=== PATIENT | female | born 2000 | race Caucasian/White ===

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

== ENCOUNTER → 2022-11-18 18:34 | Outpatient (BNVA) | payer OTHER, MEDICAID, SELFPAY | PROVIDERS: PCP Family Medicine; Visit Provider Nurse Practitioner Family | DX: R50.9 Fever, unspecified (principal); Z20.822 Contact with and (suspected) exposure to COVID-19 | CPT/HCPCS: 87400; 87426 ==

== ENCOUNTER → 2023-07-30 16:35 | Outpatient (BNVA) | payer MEDICAID, SELFPAY | PROVIDERS: PCP Family Medicine; Visit Provider Nurse Practitioner Family | DX: R39.9 Unspecified symptoms and signs involving the genitourinary system (principal); N39.0 Urinary tract infection, site not specified | CPT/HCPCS: 81000; 81025; 87077; 87086; 87184 ==

== ENCOUNTER 2024-09-15 08:00 | Outpatient (CLI) | payer MEDICAID, SELFPAY ==
[2024-09-15] VITALS (14 sets, daily range): BP systolic 123–153; BP diastolic 67–97; PULSE 74–107; O2SAT 98; BMI 29.2
[2024-09-15 09:10] LABS: Nitrazine Paper, PH Negative
[2024-09-15] MEDS: hyDROXYzine 25 mg Capsule PO (10:38)
== END 2024-09-15 11:50 | disposition home or self-care (01) ==
LOC: OPOB 08:07 → OBGYN 08:08
PROVIDERS: PCP Family Medicine; Visit Provider Family Medicine
DX: O26.899 Other specified pregnancy related conditions, unspecified trimester (principal); Z3A.00 Weeks of gestation of pregnancy not specified; R10.9 Unspecified abdominal pain
CPT/HCPCS: 83986

== ENCOUNTER 2024-09-25 01:16 | Inpatient (IN) | payer MEDICAID, SELFPAY ==
[2024-09-24] VITALS (49 sets, daily range): BP systolic 115–176; BP diastolic 57–104; PULSE 71–109; RESP 17; TEMP 36.6–36.7; O2SAT 96–98; BMI 28.8
[2024-09-24 13:40] LABS: UPRO/UCREAT Ratio 0.33 mg/mg CR; Urine Creatinine 33 mg/dL (28-217); Urine Protein Random 11 mg/dL
[2024-09-24 13:53] LABS: Bilirubin Urine Negative (Negative); Blood Urine Negative (Negative); Glucose Urine UA Negative (Normal); Ketones Urine Negative (Negative); Leukocyte Esterase Urine Trace (Negative); Nitrate Urine Negative (Negative); Protein Urine Negative (Negative); Specific Gravity, Urine 1.006 (1.005-1.030); Urine Appearance Cloudy (CLEAR); Urine Color Yellow (Yellow); Urobilinogen Urine 0.2 mg/dL (Negative)
[2024-09-24 13:55] LABS: Add Urine Microscopic? YES; Bacteria Urine 1+ /hpf; Hyaline Casts Urine 2.46 /lpf; RBC Urine 0-2 /hpf (0-2); Squamous Epithelial Cell Urine 21-50 /hpf (0-5)
[2024-09-24 14:03] LABS: Basophils # 0.1 10^3/uL (0.0-0.1); Basophils % 0.7 %; Eosinophils % 0.4 %; Hematocrit 38.7 % (36-47); Lymphocytes # 2.4 10^3/uL (0.8-4.8); Lymphocytes % 31.7 %; Mean Corpuscular HGB Conc 32.6 g/dL (30-55); Mean Corpuscular Hemoglobin 27.9 pg (27-33); Mean Corpuscular Volume 85.6 fl (85-98); Mean Platelet Volume 11.8 fL (7.4-10.4); Monocytes # 0.6 10^3/uL (0.2-0.9); Monocytes % 8.1 %; Neutrophils % 58.6 %; Nucleated Red Blood Cells % 0 %; Platelet Count 184 10^3/cmm (157-399); Red Blood Count 4.52 10^6/uL (3.85-5.65); Red Cell Distribution Width 13.7 % (12.1-15.1); White Blood Count 7.67 10^3/uL (3.29-11.43)
[2024-09-24] MEDS: hyDROXYzine 25 mg Capsule PO (14:13)
[2024-09-24 14:18] LABS: Uric Acid 4.7 mg/dL (2.4-5.7)
[2024-09-24 14:45] LABS: Alanine Aminotransferase 11 U/L (0-33); Albumin Level 3.7 g/dL (3.5-5.2); Alkaline Phosphatase 207 U/L (35-105); Anion Gap 19.2 (5-19); Aspartate Amino Transferase 20 U/L (0-32); Blood Urea Nitrogen 6 mg/dL (6-20); Calcium 9.9 mg/dL (8.5-10.5); Carbon Dioxide 19 mmol/L (22-29); Chloride 100 mmol/L (98-107); Globulin 3.1 g/dL (1.3-4.6); Glucose 73 mg/dL (65-115); Osmolality Calculated 274 mOsm/kg (285-295); Potassium 4.2 mmol/L (3.5-5.1); Sodium 134 mmol/L (136-145); Total Bilirubin 0.3 mg/dL (0.15-1.2); Total Protein 6.8 g/dL (6.6-8.7)
[2024-09-24] MEDS: lactated ringers 1,000 ML 999 ML IV (17:00)
[2024-09-24] MEDS: miSOPROStol 100 mcg tablet 25 MCG VAGINAL ×2 (17:11→22:03)
--- NOTE | 2024-09-24 17:43 | PM.OPHPUD ---
Labor & Delivery H&P Update Date of Procedure: September 24, 2024 Date H&P Performed: 09/24/24 Changes to previous documentation: The patient has had multiple blood pressures that were severe. She also had a protein creatinine ratio greater than 0.3. Admission Diagnosis: 24-year-old 1 at 40 weeks estimated gestational age with preeclampsia. Planned procedure: Vaginal delivery Other information: The patient's lab work was relatively unremarkable. Her blood type is O+. Her antibody screen is negative. She was GBS negative. She passed her glucose screen. She is rubella immune. The remainder of her infectious disease profile is within normal limits. Related Problem List Diagnoses (1) 40 weeks gestation of : (2) Preeclampsia: A&P Assessment and plan (1) 40 weeks gestation of : Status: Acute (2) Preeclampsia: While she did have some elevated blood pressures, she was also very anxious at that time. With a dose of hydroxyzine, her blood pressures were no longer in the severe range. She has no other symptoms of severe preeclampsia. She has minimal swelling. She has no headaches. She has no visual changes. Her only other indication of preeclampsia is a protein creatinine ratio of 0.3. As such, magnesium is not indicated at this time. We will initiate induction with Cytotec and adjust according to how she responds. Status: Acute
[2024-09-24] MEDS: sodium chloride 0.9% 1,000 ML 125 ML IV (19:16)
--- NOTE | 2024-09-24 20:11 | P.ANES_ITS ---
Anesthesia Procedures Procedure/Date: 09/24/24 Epidural: Time Out Performed: Yes Consents Signed: Procedure Consent Consent: requested by attending/covering physician and from patient Lumbar Level: L3-L4 Epidural position: sitting Epidural procedure: sterile prep of area, 1% lidocaine to numb the area, 18 g needle, negative for paresthesia p assed, neg for paresthesia, test dose given, 1.5% xylocaine 1:200k epi, 0.2% Ropivacaine bolus ml, placed PCEA, no systemic response, sterile dressing applied, L.U.D. no apparent complications and 0.2% Ropiavacaine @ mls/hr Additional Comments: catheter left at 14cm. ropivicaine set at 10mls/hr
[2024-09-24] MEDS: ROPivacaine syringe 100 MG/50 ML SYRINGE 10 MG EPIDURAL (20:22)
--- NOTE | 2024-09-24 20:43 | ANES.PREANE2 ---
Pre-Anesthetic Assessment Height/Weight: Height 5 ft 6 in Weight 179 lb Pulse Resp BP Pulse Ox O2 Del Method 84 17 131/66 98 Room Air 09/24/24 20:38 09/24/24 15:41 09/24/24 20:38 09/24/24 20:21 09/24/24 16:09 Preop Diagnosis: Active labor Was Beta Melissa taken within 24 hours: N/A Was Clonidine taken within 24 hours: N/A Social No alcohol and No tobacco Exam alert, oriented x 3, clear to auscultation bilaterally and regular rate & rhythm Airway Submandibular: within normal limits Cervical ROM: within normal limits Mallampati: Class II Dentition: full Anesthetic Plan ASA status: 2 Anesthesia: Regional (specify below) Other: First-time mom, no prior issues with anesthesia Preeclampsia. BP 131/66 Patient denies any issues with baby Denies low back problems Labs reviewed and acceptable for procedure Plan for routine epidural placement Medications/Allergies Home Medications Medication Instructions Recorded Confirmed Last Taken Type ferrous sulfate 325 mg (65 mg 325 mg PO DAILY 09/15/24 09/24/24 09/24/24 History iron) tablet (iron) mlialwdc-bjy-Ov-FA 1 mg 1 tab PO DAILY 09/15/24 09/24/24 09/24/24 History tablet Allergies Allergy/AdvReac Type Severity Reaction Status Date / Time nickel Allergy ADR-Itching Verified 09/15/24 08:55 Current Medications Generic Name Dose Route Start Last Admin Trade Name Freq PRN Reason Stop Dose Admin Sodium Chloride 1,000 mls @ 999 mls/hr 09/24/24 15:41 09/24/24 19:16 Sodium Chloride 0.9% IV 125 mls/hr .Q1H1M PRN Administration Per L&D Rescitation Protocol Ropivacaine 100 mg in 50 mls @ 10 mls/hr 09/24/24 16:00 09/24/24 20:22 Naropin Syringe EPIDURAL 10 mls/hr .Q5H CRISTOFER Administration Misoprostol 25 mcg 09/24/24 15:43 09/24/24 17:11 Misoprostol 100 Mcg Tablet VAGINAL 25 mcg Q4H PRN Administration LABOR INDUCTION PFSH Anesthesia Family History Grandmother Diabetes CAD (coronary artery disease) Denies family history of Anesthesia complication Bleeding disorder Cancer Social History Smoking and tobacco/nicotine status: current every day tobacco/nicotine user Alcohol intake: never Substance/Drug Use: never Female Reproductive History : 1 Data Anesthesia 09/24/24 13:52 09/24/24 13:15 Short CBC 09/24/24 Range/Units 13:52 WBC 7.67 (3.29-11.43) 10^3/uL Hgb 12.60 (11.27-16.99) g/dL Hct 38.7 (36-47) % MCV 85.6 (85-98) fl Plt Count 184 (157-399) 10^3/cmm Neut % (Auto) 58.6 % Neut # (Auto) 4.50 (1.8-7.7) 10^3/uL BMP 09/24/24 13:15 Sodium 134 L Potassium 4.2 Chloride 100 Carbon Dioxide 19 L BUN 6 Creatinine 0.6 Glucose 73 Calcium 9.9 Liver Function 09/24/24 Range/Units 13:15 Total Bilirubin 0.3 (0.15-1.2) mg/dL AST 20 (0-32) U/L ALT 11 (0-33) U/L Alkaline Phosphatase 207 H (35-105) U/L Albumin 3.7 (3.5-5.2) g/dL Urine 09/24/24 Range/Units 13:15 Urine Color Yellow (Yellow) Urine Appearance Cloudy A (CLEAR) Urine pH 7.0 (5-7) Ur Specific [place] 1.006 (1.005-1.030) Urine Protein Negative (Negative) Urine Glucose (UA) Negative (Normal) Urine Ketones Negative (Negative) Urine Nitrate Negative (Negative) Urine Bilirubin Negative (Negative) Ur Leukocyte Esterase Trace A (Negative) Urine RBC 0-2 (0-2) /hpf Urine WBC 11-20 H (0-5) /hpf Blood Bank 09/24/24 13:52 Blood Type O Positive Rho(D) Type Rh positive Antibody Screen Negative Cardiac Studies: No Data to Display
[2024-09-24] MEDS: hyDROXYzine 25 mg Capsule 50 MG PO (21:35)
[2024-09-25] VITALS (69 sets, daily range): BP systolic 122–179; BP diastolic 58–104; PULSE 66–139; RESP 14–20; TEMP 36.4–37.8; O2SAT 97
[2024-09-25] MEDS: ROPivacaine syringe 100 MG/50 ML SYRINGE 10 MG EPIDURAL ×4 (00:01→08:37)
[2024-09-25] MEDS: dextrose 5%-lactated ringers 1,000 ML 125 ML IV ×2 (01:43→09:24)
--- NOTE | 2024-09-25 11:55 | P.PCNOB_ITS ---
Delivery Note: Date of delivery: September 25, 2024 Pre-delivery diagnoses: 24-year-old 1 at 40 weeks estima sneha gestational age with preeclampsia without severe features Post-delivery diagnoses: Status post spontaneous vaginal delivery Procedure: Spontaneous vaginal delivery Delivering Physician: Georges Ghosh Estimated blood loss (mL): 75 Pre-Delivery Course: The patient presented to the hospital for induction due to elevated blood pressures. She is also noted to have a protein creatinine ratio of 0.3. Otherwise she had no symptoms for preeclampsia and while she did have some severe blood pressures initially they resolved quickly with a dose of hydralazine. She was placed on Cytotec 25 mcg per vagina x 3. An epidural was placed. Spontaneous rupture membranes occurred about 8 hours prior to delivery. Delivery: DELIVERY: The patient progressed to complete without difficulty. She delivered a male with a weight of 8 pounds 7 ounces with Apgars of 7, 9. The baby was delivered from the [] position. The baby's mouth and nose were suctioned at the site of the perineum. The baby was then completely delivered and placed on the mother's abdomen. The cord was then clamped and cut. There was no nuchal cord. There was no meconium. The placenta and 3 vessel cord were delivered intact shortly thereafter. The perineum and vaginal vault were carefully examined. No lacerations were noted. Both the mother and the baby were in stable condition. Post-Delivery Status: Good History History History 1 Term Miscarriages/Ectopic Living Children A&P Assessment and plan (1) 40 weeks gestation of : I anticipate routine care. The patient has had no symptoms of preeclampsia and her blood pressures have resolved. If she starts having symptoms with preeclampsia her blood pressure substantially increases we may consider more interventions. (2) Preeclampsia: (3) Spontaneous vaginal delivery: Coding Level of Care Code Acute Code for Chg Fwd Diagnoses 40 weeks gestation of Z3A.40 Preeclampsia O14.90 Spontaneous vaginal delivery O80
[2024-09-25] MEDS: hyDRALAzine 20 mg/mL INJ 1 mL 5 MG IVP (13:37)
[2024-09-25] MEDS: hyDRALAzine 20 mg/mL INJ 1 mL 10 MG IVP (14:06)
[2024-09-25] MEDS: acetaminophen 325 mg Tablet 650 MG PO (14:09)
[2024-09-25] MEDS: hyDRALAzine 20 mg/mL INJ 1 mL IVP (14:27)
[2024-09-25] MEDS: ibuprofen 800 mg tablet PO ×2 (15:59→21:33)
--- NOTE | 2024-09-25 18:50 | PC.NURSE ---
Multiple family members in room at this time. Family remained in room until 1615.
[2024-09-25] MEDS: docusate sodium 100 mg Capsule PO (21:33)
[2024-09-26 00:41] VITALS: BP 134/68
[2024-09-26 03:43] LABS: Hematocrit 36.6 % (36-47); Mean Corpuscular HGB Conc 32.8 g/dL (30-55); Mean Corpuscular Volume 85.3 fl (85-98); Mean Platelet Volume 12.3 fL (7.4-10.4); Platelet Count 176 10^3/cmm (157-399); Red Blood Count 4.29 10^6/uL (3.85-5.65); Red Cell Distribution Width 14.4 % (12.1-15.1); White Blood Count 12.54 10^3/uL (3.29-11.43)
[2024-09-26 04:17] VITALS: BP 150/94; PULSE 76; RESP 16; TEMP 37; O2SAT 99
[2024-09-26 05:22] VITALS: BP 110/57
[2024-09-26 06:00] VITALS: BMI 28.8
--- NOTE | 2024-09-26 07:36 | PM.OBGYDC ---
Discharge Providers EDUCATIONAL DIAGNOSTICIAN Date of Admission: 09/25/24 01:16 Date of Discharge: 09/26/24 Attending Provider at Admission: Georges Ghosh MD Attending Provider at Discharge: Georges Ghosh MD Primary Care Provider: Francois Ahuja MD Diagnoses at Discharge Discharge Diagnosis (1) 40 weeks gestation of : Status: Acute (2) Preeclampsia: Status: Acute Reason for Visit Reason for Visit: Elevated BP Hospital Course Hospital Course The patient presented to the hospital after being seen in my office and found found to have elevated blood pressures multiple times. After arriving to the hospital, she had a preeclamptic workup which found her protein creatinine ratio be 0.3. She also had intermittent elevated blood pressures. Her blood pressures appear to be very related to her anxiety level. She was induced using Cytotec. Her labor was relatively unremarkable. She progressed to complete and had an unremarkable delivery of a healthy appearing . Her course was also unremarkable. She once again had some elevated blood pressures, but were intermittent, and related to surrounding circumstances. Otherwise she had no symptoms of preeclampsia. Her bleeding was within normal limits. Her pain was well-controlled. She was breast-feeding, but complained of a shallow latch. A frenectomy was performed on her . Information Peripartum Data: Infant Delivery Method: Vaginal Physical Exam Narrative: The patient is alert. She appears comfortable. Her heart has a regular rate and rhythm with no murmurs appreciated. Lungs are clear to auscultation bilaterally. Her fundus is firm and below the umbilicus. Urinary Catheter Management: Stanley: Cath Placed During This Visit: yes, but has since been removed by the nurse Reason for Continuing Indwelling Catheter: Decision to DC Catheter Urinary Catheter Date of Insertion: 09/24/24 Urinary Catheter Time of Insertion: 20:50 Date Urinary Catheter Removed: 09/25/24 Time Urinary Catheter Discontinued: 10:00 History History History 1 Term Miscarriages/Ectopic Living Children Discharge Data Studies Completed and Pending Laboratory Results WBC 12.54 10^3/uL (3.29-11.43) H 09/26/24 02:47 RBC 4.29 10^6/uL (3.85-5.65) 09/26/24 02:47 Hgb 12.00 g/dL (11.27-16.99) 09/26/24 02:47 Hct 36.6 % (36-47) 09/26/24 02:47 MCV 85.3 fl (85-98) 09/26/24 02:47 MCH 28.0 pg (27-33) 09/26/24 02:47 MCHC 32.8 g/dL (30-55) 09/26/24 02:47 RDW 14.4 % (12.1-15.1) 09/26/24 02:47 Plt Count 176 10^3/cmm (157-399) 09/26/24 02:47 MPV 12.3 fL (7.4-10.4) H 09/26/24 02:47 Neut % (Auto) 58.6 % 09/24/24 13:52 Lymph % (Auto) 31.7 % 09/24/24 13:52 Meigs % (Auto) 8.1 % 09/24/24 13:52 Eos % (Auto) 0.4 % 09/24/24 13:52 Baso % (Auto) 0.7 % 09/24/24 13:52 Neut # (Auto) 4.50 10^3/uL (1.8-7.7) 09/24/24 13:52 Lymph # (Auto) 2.4 10^3/uL (0.8-4.8) 09/24/24 13:52 Meigs # (Auto) 0.6 10^3/uL (0.2-0.9) 09/24/24 13:52 Eos # (Auto) 0.0 10^3/uL (0.0-0.8) 09/24/24 13:52 Baso # (Auto) 0.1 10^3/uL (0.0-0.1) 09/24/24 13:52 Nucleated RBC % (auto) 0 % 09/24/24 13:52 Nucleated RBCs # 0.0 /100WBC 09/24/24 13:52 Sodium 134 mmol/L (136-145) L 09/24/24 13:15 Potassium 4.2 mmol/L (3.5-5.1) 09/24/24 13:15 Chloride 100 mmol/L (98-107) 09/24/24 13:15 Carbon Dioxide 19 mmol/L (22-29) L 09/24/24 13:15 Anion Gap 19.2 (5-19) H 09/24/24 13:15 BUN 6 mg/dL (6-20) 09/24/24 13:15 Creatinine 0.6 mg/dL (0.5-0.9) 09/24/24 13:15 GFR Calculation 125.0 mL/min (90-130) 09/24/24 13:15 Glucose 73 mg/dL (65-115) 09/24/24 13:15 Calculated Osmolality 274 mOsm/kg (285-295) L 09/24/24 13:15 Uric Acid 4.7 mg/dL (2.4-5.7) 09/24/24 13:52 Calcium 9.9 mg/dL (8.5-10.5) 09/24/24 13:15 Total Bilirubin 0.3 mg/dL (0.15-1.2) 09/24/24 13:15 AST 20 U/L (0-32) 09/24/24 13:15 ALT 11 U/L (0-33) 09/24/24 13:15 Alkaline Phosphatase 207 U/L (35-105) H 09/24/24 13:15 Total Protein 6.8 g/dL (6.6-8.7) 09/24/24 13:15 Albumin 3.7 g/dL (3.5-5.2) 09/24/24 13:15 Globulin 3.1 g/dL (1.3-4.6) 09/24/24 13:15 Urine Color Yellow (Yellow) 09/24/24 13:15 Urine Appearance Cloudy (CLEAR) A 09/24/24 13:15 Urine pH 7.0 (5-7) 09/24/24 13:15 Ur Specific [place] 1.006 (1.005-1.030) 09/24/24 13:15 Urine Protein Negative (Negative) 09/24/24 13:15 Urine Glucose (UA) Negative (Normal) 09/24/24 13:15 Urine Ketones Negative (Negative) 09/24/24 13:15 Urine Blood Negative (Negative) 09/24/24 13:15 Urine Nitrate Negative (Negative) 09/24/24 13:15 Urine Bilirubin Negative (Negative) 09/24/24 13:15 Urine Urobilinogen 0.2 mg/dL (Negative) 09/24/24 13:15 Ur Leukocyte Esterase Trace (Negative) A 09/24/24 13:15 Urine RBC 0-2 /hpf (0-2) 09/24/24 13:15 Urine WBC 11-20 /hpf (0-5) H 09/24/24 13:15 Ur Squamous Epith Cells 21-50 /hpf (0-5) H 09/24/24 13:15 Amorphous Sediment Not Reportable 09/24/24 13:15 Urine Bacteria 1+ /hpf (NONE) H 09/24/24 13:15 Hyaline Casts 2.46 /lpf 09/24/24 13:15 U Random Total Protein 11 mg/dL 09/24/24 13:15 Urine Creatinine 33 mg/dL (28-217) 09/24/24 13:15 Protein/Creatinin Ratio 0.33 mg/mg CR 09/24/24 13:15 Blood Type O Positive 09/24/24 13:52 Rho(D) Type Rh positive 09/24/24 13:52 Antibody Screen Negative 09/24/24 13:52 Vitals Last Vital Signs Temp 98.6 F 09/26/24 04:17 Pulse 76 09/26/24 04:17 Resp 16 09/26/24 04:17 BP 110/57 09/26/24 05:22 Pulse Ox 99 09/26/24 04:17 O2 Del Method Room Air 09/26/24 04:17 Results Labs OB ([facility]): Blood Type O Positive 09/24/24 Antibody Screen Negative 09/24/24 Hct 36.6 % (36-47) 09/26/24 Hgb 12.00 g/dL (11.27-16.99) 09/26/24 Rho(D) Type Rh positive 09/24/24 Plt Count 176 10^3/cmm (157-399) 09/26/24 Uric Acid 4.7 mg/dL (2.4-5.7) 09/24/24 HCG, Qual Negative (Negative) 07/30/23 Micro Urine Specimen 07/30/23 Discharge Plan Discharge Patient Disposition: Home Condition: Stable Prescriptions: New ibuprofen 800 mg Tablet 800 mg PO TID Qty: 45 0RF Continued [id number] 1 mg Tablet 1 tab PO DAILY Discontinued ferrous sulfate [iron] 325 mg (65 mg iron) Tablet 325 mg PO DAILY Discharge Orders: Discharge Order (Routine); Ordered 09/26/24 Ordered By: Georges Ghosh Referrals: Georges Ghosh MD [Physician] - Discharge Diet: Usual diet Discharge Activity: Limit activity as instructed Patient Instructions: Depression (DC), Opioid Safety (DC), Preeclampsia and Eclampsia After Delivery (GEN), Hemorrhage (DC), OB Discharge Report, OB Food/Drug Interaction Guide, OB Care at Home, Opioid Safety, OB Vaginal Deliveries, Abnormal Bleeding Discharge Attestations EDUCATIONAL DIAGNOSTICIAN Time Spent in Discharge Care*: less than 30 min Coding Level of Care Code Acute Code for Chg Fwd Diagnoses 40 weeks gestation of Z3A.40 Preeclampsia O14.90
[2024-09-26] MEDS: ibuprofen 800 mg tablet PO (09:27)
[2024-09-26] MEDS: docusate sodium 100 mg Capsule PO (09:27)
[2024-09-26] MEDS: PRENATAL VIT NO.130/IRON/FOLIC 1 EACH TABLET PO (09:27)
[2024-09-26 09:30] VITALS: BP 151/94; PULSE 101; TEMP 36.4
[2024-09-26 14:00] VITALS: BP 128/78; PULSE 86; TEMP 36.6
[2024-09-26 15:11] VITALS: BP 128/78; PULSE 86; O2SAT 98
== END 2024-09-26 14:16 | disposition home or self-care (01) | DRG 807 ==
PROVIDERS: Admitting Provider Family Medicine; PCP Family Medicine; Visit Provider Family Medicine
DX: O14.04 Mild to moderate pre-eclampsia, complicating childbirth (principal); Z37.0 Single live birth; Z3A.40 40 weeks gestation of pregnancy
CPT/HCPCS: 36415; 51702; 59025; 59409; 80053; 81001; 82570; 84156; 84550; 85025; 85027; 86850; 86900; 99211; J0360; J2795; J7030; J7120; J7121

== ENCOUNTER 2024-11-19 01:43 | Emergency (ER) | payer MEDICAID, SELFPAY ==
[2024-11-19 01:54] VITALS: BP 149/98; PULSE 117; RESP 18; TEMP 36.8; O2SAT 100; BMI 24.2
[2024-11-19 01:57] VITALS: BP 149/98; PULSE 117; RESP 18; O2SAT 100
[2024-11-19 02:14] LABS: Basophils # 0.1 10^3/uL (0.0-0.1); Basophils % 0.6 %; Eosinophils # 0.2 10^3/uL (0.0-0.8); Hematocrit 40.9 % (36-47); Lymphocytes % 44.2 %; Mean Corpuscular Hemoglobin 28.8 pg (27-33); Mean Corpuscular Volume 84.9 fl (85-98); Mean Platelet Volume 9.7 fL (7.4-10.4); Monocytes # 0.6 10^3/uL (0.2-0.9); Monocytes % 6.8 %; Neutrophils # 4.17 10^3/uL (1.8-7.7); Neutrophils % 46.2 %; Nucleated Red Blood Cells % 0 %; Platelet Count 292 10^3/cmm (157-399); Red Blood Count 4.82 10^6/uL (3.85-5.65); Red Cell Distribution Width 12.9 % (12.1-15.1); White Blood Count 9.02 10^3/uL (3.29-11.43)
[2024-11-19 02:27] VITALS: BP 140/90; PULSE 73; RESP 16; O2SAT 99
[2024-11-19 02:30] VITALS: BP 145/85; PULSE 90; RESP 16; O2SAT 98
[2024-11-19 02:37] LABS: Alanine Aminotransferase 22 U/L (0-33); Albumin Level 4.3 g/dL (3.5-5.2); Alkaline Phosphatase 73 U/L (35-105); Blood Urea Nitrogen 19 mg/dL (6-20); Calcium 9.3 mg/dL (8.5-10.5); Carbon Dioxide 20 mmol/L (22-29); Chloride 104 mmol/L (98-107); Creatinine Clr Calc Pharmacy 124.9682; Globulin 3.1 g/dL (1.3-4.6); Glomerular Filtration Rate 104.6 mL/min (90-130); Glucose 107 mg/dL (65-115); Osmolality Calculated 289 mOsm/kg (285-295); Sodium 138 mmol/L (136-145); Total Bilirubin 0.3 mg/dL (0.15-1.2); Total Protein 7.4 g/dL (6.6-8.7)
[2024-11-19 02:47] LABS: Anion Gap 17.7 (5-19); Aspartate Amino Transferase 23 U/L (0-32); Potassium 3.7 mmol/L (3.5-5.1)
--- NOTE | 2024-11-19 02:57 | ED_ITS ---
HPI - 2 General: Chief complaint: OB/Uterine Contractions Stated complaint: Period Bleeding a Lot Time Seen by Provider: 11/19/24 01:54 History of Present Illness: 24-year-old female who gave about 8 weeks ago who presents emergency room with heavy period. She says she started 2 days ago and has been going through multiple pads all day and has been the heaviest. She is never had. No weakness. Vitals are normal on presentation. She was slightly tachycardic initially but dropped back down to 90 after she sat down. No abdominal pain. No fevers. Date of Last Menstrual Period: 11/18/24 Related Data Home Medications ?Medication ?Instructions ?Recorded ?Confirmed sfobfwoj-yve-[id number]-FA 1 mg 1 tab PO DAILY 09/24/24 tablet Previous Rx's ?Medication ?Instructions ?Recorded ibuprofen 800 mg tablet 800 mg PO TID #45 tabs 09/26 Allergies Allergy/AdvReac Type Severity Reaction Status Date / Time nickel Allergy ADR-Itching Verified 11/19/24 01:57 Review of Systems 2 Narrative: Constitutional symptoms: Negative except as documented in HPI. Skin symptoms: Negative except as documented in HPI. Eye symptoms: Negative except as documented in HPI. ENMT symptoms: Negative except as documented in HPI. Respiratory symptoms: Negative except as documented in HPI. Cardiovascular symptoms: Negative except as documented in HPI. Gastrointestinal symptoms: Negative except as documented in HPI. Genitourinary symptoms: Negative except as documented in HPI. Musculoskeletal symptoms: Negative except as documented in HPI. Neurologic symptoms: Negative except as documented in HPI. Psychiatric symptoms: Negative except as documented in HPI. Endocrine symptoms: Negative except as documented in HPI. PFSH ED 2 PFSH: Family History Grandmother Diabetes CAD (coronary artery disease) Denies family history of Anesthesia complication Bleeding disorder Cancer Social History Smoking and tobacco/nicotine status: current every day tobacco/nicotine user Alcohol intake: never Substance/Drug Use: never Female Reproductive History: Date of last menstrual period: 11/18/24 Physical Exam 2 Narrative: EXAM NARRATIVE: General: Alert, no acute distress. Skin: warm and dry Head: Normocephalic Neck: Trachea midline Eye: Extraocular movements are intact. Ears, nose, mouth and throat: Oral mucosa moist Respiratory: Respirations are non-labored Musculoskeletal: Normal ROM Neurological: Alert and oriented, No focal neurological deficit observed. Psychiatric: Cooperative, appropriate mood & affect. Course 2 Vital Signs: Vital signs: Vital Signs Temperature 98.3 F 11/19/24 01:54 Pulse Rate 90 11/19/24 03:00 Respiratory Rate 16 11/19/24 03:00 Blood Pressure 140/90 11/19/24 03:00 Pulse Oximetry 99 11/19/24 03:00 Oxygen Delivery Me thod Room Air 11/19/24 01:54 MDM - OB/Uterine Contractions Medical Decision Making Lab review: No leukocytosis. No anemia. No renal failure. Assessment and plan: Menorrhagia ?Recommend to follow with Dr. Ghosh in the very near future if she continues to have bleeding. However she says since she has been here she has not had any further bleeding - Discharged home - Discussed plan with patient. Answered any questions. - Evaluation and treatment of this problem were appropriate in the emergency setting. Lab Data 11/19/24 02:00 11/19/24 02:00 Laboratory Results WBC 9.02 10^3/uL (3.29-11.43) 11/19/24 02:00 RBC 4.82 10^6/uL (3.85-5.65) 11/19/24 02:00 Hgb 13.90 g/dL (11.27-16.99) 11/19/24 02:00 Hct 40.9 % (36-47) 11/19/24 02:00 MCV 84.9 fl (85-98) L 11/19/24 02:00 MCH 28.8 pg (27-33) 11/19/24 02:00 MCHC 34.0 g/dL (30-55) 11/19/24 02:00 RDW 12.9 % (12.1-15.1) 11/19/24 02:00 Plt Count 292 10^3/cmm (157-399) 11/19/24 02:00 MPV 9.7 fL (7.4-10.4) 11/19/24 02:00 Neut % (Auto) 46.2 % 11/19/24 02:00 Lymph % (Auto) 44.2 % 11/19/24 02:00 [place]Brien % (Auto) 6.8 % 11/19/24 02:00 Eos % (Auto) 2.0 % 11/19/24 02:00 Baso % (Auto) 0.6 % 11/19/24 02:00 Neut # (Auto) 4.17 10^3/uL (1.8-7.7) 11/19/24 02:00 Lymph # (Auto) 4.0 10^3/uL (0.8-4.8) 11/19/24 02:00 [place]Brien # (Auto) 0.6 10^3/uL (0.2-0.9) 11/19/24 02:00 Eos # (Auto) 0.2 10^3/uL (0.0-0.8) 11/19/24 02:00 Baso # (Auto) 0.1 10^3/uL (0.0-0.1) 11/19/24 02:00 Nucleated RBC % (auto) 0 % 11/19/24 02:00 Nucleated RBCs # 0.0 /100WBC 11/19/24 02:00 Sodium 138 mmol/L (136-145) 11/19/24 02:00 Potassium 3.7 mmol/L (3.5-5.1) 11/19/24 02:00 Chloride 104 mmol/L (98-107) 11/19/24 02:00 Carbon Dioxide 20 mmol/L (22-29) L 11/19/24 02:00 Anion Gap 17.7 (5-19) 11/19/24 02:00 BUN 19 mg/dL (6-20) 11/19/24 02:00 Creatinine 0.7 mg/dL (0.5-0.9) 11/19/24 02:00 GFR Calculation 104.6 mL/min (90-130) 11/19/24 02:00 Glucose 107 mg/dL (65-115) 11/19/24 02:00 Calculated Osmolality 289 mOsm/kg (285-295) 11/19/24 02:00 Calcium 9.3 mg/dL (8.5-10.5) 11/19/24 02:00 Total Bilirubin 0.3 mg/dL (0.15-1.2) 11/19/24 02:00 AST 23 U/L (0-32) 11/19/24 02:00 ALT 22 U/L (0-33) 11/19/24 02:00 Alkaline Phosphatase 73 U/L (35-105) 11/19/24 02:00 Total Protein 7.4 g/dL (6.6-8.7) 11/19/24 02:00 Albumin 4.3 g/dL (3.5-5.2) 11/19/24 02:00 Globulin 3.1 g/dL (1.3-4.6) 11/19/24 02:00 No radiology studies performed this visit Discharge Plan Discharge Patient Disposition: Home Clinical Impression: Menorrhagia Condition: Stable Prescriptions: No Action agkhsfyi-eif-Sj-FA 1 mg Tablet 1 tab PO DAILY ibuprofen 800 mg Tablet 800 mg PO TID Qty: 45 0RF Discharge Orders: Discharge ED (Routine); Ordered 11/19/24 Ordered By: Nella Roa Referrals: Georges Ghosh MD [Primary Care Provider] - 1-3 days (Please call for an appointment) Discharge Diet: Usual diet Discharge Activity: Increase activity as tolerated Patient Instructions: Opioid Safety, Pain Management Activity Restrictions/Additional Instructions: Thank you for choosing [facility] for your healthcare needs today. Please realize this is an emergency room and that we are providing you with a medical screening exam and this may not be complete and all inclusive of all the testing and or work up that you may need to determine your ailment or severity of your illness. You have been screened and evaluated and felt safe for discharge. Health conditions do change or evolve sometimes and as such it is important that you follow up with your Primary Doctor to be re checked, 3-5 days is a general good time frame for follow up. You are always welcome to return to the ED for re assessment if your symptoms are worsening or you have new concerns Print Language: Sami Coding Level of Care Code ED Nursing Program Manager for Christin Sifuentes
[2024-11-19 03:00] VITALS: BP 140/90; PULSE 90; RESP 16; O2SAT 99
[2024-11-19 03:14] VITALS: BP 133/85; PULSE 95; O2SAT 97
== END 2024-11-19 03:15 | disposition home or self-care (01) ==
PROVIDERS: Emergency Provider Emergency Medicine; PCP Family Medicine
DX: N92.0 Excessive and frequent menstruation with regular cycle (principal); Z72.0 Tobacco use
CPT/HCPCS: 80053; 85025; 99283

== ENCOUNTER → 2025-01-01 12:58 | Outpatient (BNVA) | payer MEDICAID, SELFPAY | PROVIDERS: PCP Family Medicine; Visit Provider Nurse Practitioner | DX: R10.9 Unspecified abdominal pain (principal) | CPT/HCPCS: 81000 ==